=== PATIENT | female | born 1985 | race African-American/Black ===

== ENCOUNTER 2016-03-27 12:26 | Emergency (ER) | payer OTHER ==
[~2016-03-27] VITALS: Ht 149.9 cm; Wt 86.2 kg
[~2016-03-27 12:26] MED LIST: AMOXICILLIN875 MG PO; FLEXERIL PO; LORTABELXR PO; NAPROSYN500 MG PO; NORCO 5-325 TA1 EACH PO
[2016-03-27 12:27] VITALS: BP 123/87
[2016-03-27] MEDS ORDERED: CORTISPORIN OTI10 M2 OTIC (13:06)
[2016-03-27] MEDS ORDERED: FLONASE 0.05%50 MCG NASAL (13:06)
[2016-03-27] MEDS ORDERED: TESSALON PERLE100 MG PO (13:06)
[2016-05-02] MEDS ORDERED: UNICOMPLEX M TA1 TA1 PO (10:59)
[2016-05-02] MEDS ORDERED: PROAIR HFA8.5 GM IH (11:24)
== END 2016-03-27 13:19 ==
LOC: ER 12:26
DX: J06.9 Acute upper respiratory infection, unspecified (principal); H60.92 Unspecified otitis externa, left ear; Z97.5 Presence of (intrauterine) contraceptive device; Z88.6 Allergy status to analgesic agent; F10.99 Alcohol use, unspecified with unspecified alcohol-induced disorder

== ENCOUNTER 2018-02-16 10:24 | Emergency (ER) | payer OTHER ==
[~2018-02-16] VITALS: Ht 149.9 cm; Wt 98.4 kg
[~2018-02-16 10:24] MED LIST changes: +CARAFATE 1 GM TA1 G1 PO; +CORTISPORIN OTI10 M2 OTIC; +FLONASE 0.05%50 MCG NASAL; +PEPCID20 MG PO; +PROAIR HFA8.5 GM IH; +TESSALON PERLE100 MG PO; +UNICOMPLEX M TA1 TA1 PO
[2018-02-16 10:26] VITALS: BP 117/84
[2018-02-16] MEDS ORDERED: MULTI VITAMIN1 EACH PO (10:31)
[2018-02-16] MEDS ORDERED: BELVIQ10 MG PO (10:31)
[2018-02-16] MEDS ORDERED: BACTRIM DS TAB1 EACH PO (10:43)
== END 2018-02-16 11:03 | disposition home or self-care (01) ==
LOC: ER 10:24
DX: L02.211 Cutaneous abscess of abdominal wall (principal); Z88.5 Allergy status to narcotic agent; Z98.890 Other specified postprocedural states